=== PATIENT | female | born 1975 | race Caucasian/White ===

== ENCOUNTER 2017-01-28 05:38 | Observation (INO) | payer BC, MEDICAID ==
[2017-01-27 12:14] LABS: HEMATOCRIT 44.1 % (34.6-47.8); HEMOGLOBIN 14.9 g/dL (11.7-16.4); WHITE BLOOD COUNT 7.6 x10^3/uL (3.4-10)
[2017-01-27 12:26] LABS: BLOOD UREA NITROGEN 8 mg/dL (7-18)
[2017-01-27 12:33] LABS: ASPARTATE AMINO TRANSFERASE 15 U/L (15-37)
[~2017-01-28] VITALS: Ht 152.4 cm; Wt 94.5 kg
[~2017-01-28 05:38] MED LIST: AMIT50TA; CHLO25TA PO; HYDR-3240; IBUP-1223 PO; LISI-170 PO; ONDA4TAB13 SL; ONDA4TAB7; OXYC1TAB7 PO; OXYC5CAP2 PO; RIZA10TA22 PO; SENN-87 PO; SUMA100T4; TAMS-11; VALS160T3 PO; ZOLP10TA; ZOLP10TA5 PO
[2017-01-28 06:21] VITALS: BP 136/89
[2017-01-28] MEDS ORDERED: LIDOCAINE 1%, 2ML ONE (06:32)
[2017-01-28] MEDS ORDERED: FLUORESCEIN SODIUM 500 MG/5 ML ONE (07:05)
[2017-01-28] MEDS ORDERED: BUPIVACAINE/PF 0.25% ONE (07:05)
[2017-01-28] MEDS ORDERED: EPINEPHRINE 1 MG/ML, 1ML ONE (07:06)
[2017-01-28] MEDS ORDERED: MIDAZOLAM 1 MG/ML, 2ML ONE (07:21)
[2017-01-28] MEDS ORDERED: FENTANYL PF 100 MCG/2ML ONE ×7 (07:22→10:55)
[2017-01-28] MEDS ORDERED: PROPOFOL 10 MG/ML, 20ML ONE (07:31)
[2017-01-28] MEDS ORDERED: ROCURONIUM 10 MG/ML ONE ×4 (07:31)
[2017-01-28] MEDS ORDERED: CEFAZOLIN 1,000 MG ONE (07:31)
[2017-01-28] MEDS ORDERED: DEXAMETHASONE 4 MG/ML, 5ML ONE (07:31)
[2017-01-28] MEDS ORDERED: KETOROLAC 30 MG/1 ML ONE (07:31)
[2017-01-28] MEDS ORDERED: SUCCINYLCHOLINE 20 MG/ML, 10ML ONE (07:31)
[2017-01-28] MEDS ORDERED: ONDANSETRON 2MG/ML, 2ML ONE (07:31)
[2017-01-28] MEDS ORDERED: BUPIVACAINE/PF-EPI 0.25% 1:200K INFIL ONE (08:20)
[2017-01-28] MEDS ORDERED: ALBUTEROL SULFATE 2.5 MG/3 ML NPPB PRN (08:30)
[2017-01-28] MEDS ORDERED: hydrALAzine 20 MG/ML, 1ML IV PRN (08:30)
[2017-01-28] MEDS ORDERED: ONDANSETRON 2MG/ML, 2ML IVPush PRN (08:30)
[2017-01-28] MEDS ORDERED: LABETALOL 5MG/ML, 20ML IV PRN (08:30)
[2017-01-28] MEDS ORDERED: MEPERIDINE/PF 25MG/0.5ML IVPush PRN (08:30)
[2017-01-28] MEDS ORDERED: PROMETHAZINE 25 MG/ML, 1ML IV PRN (08:30)
[2017-01-28] MEDS ORDERED: MIDAZOLAM 1 MG/ML, 2ML IV PRN (08:30)
[2017-01-28] MEDS ORDERED: ACETAMINOPHEN 325 MG TABLET PO PRN (08:30)
[2017-01-28] MEDS ORDERED: OXYcodone 5 MG/5 ML ORAL.SOL UDC ONE ×2 (10:55→11:21)
[2017-01-28] MEDS ORDERED: ACETAMINOPHEN 650 MG/20.3 ML UDC ONE (10:55)
[2017-01-28] MEDS: FENTANYL PF 100 MCG/2ML IV PRN ×2 (10:59→11:07)
[2017-01-28] MEDS: OXYcodone 5 MG/5 ML ORAL.SOL UDC PO PRN ×2 (11:06→11:22)
[2017-01-28] MEDS ORDERED: HYDROmorphone 2 MG/ML, 1ML ONE ×2 (11:16→12:01)
[2017-01-28] MEDS: HYDROmorphone 1 MG/ML, 1ML IV PRN ×5 (11:20→12:03)
[2017-01-28] MEDS ORDERED: IBUPROFEN 600 MG TABLET PO PRN (13:00)
[2017-01-28] MEDS ORDERED: OXYcodone/APAP 5/325MG TABLET PO PRN ×3 (13:00→20:30)
[2017-01-28] MEDS ORDERED: OXYcodone IR 5MG TABLET PO PRN (13:00)
[2017-01-28] MEDS: ONDANSETRON 2MG/ML, 2ML IVPush PRN ×2 (13:48→21:28)
[2017-01-28] MEDS ORDERED: HYDROcodone/APAP 5/325 TABLET PO PRN (16:00)
[2017-01-28] MEDS: MORPHINE SULFATE 4 MG/ML, 1ML IVPush PRN ×4 (16:54→23:41)
[2017-01-28] MEDS ORDERED: ZOLPIDEM 10MG TABLET PO PRN (18:00)
[2017-01-28] MEDS: METHOCARBAMOL 750 MG TABLET PO PRN (18:11)
[2017-01-28] MEDS: METOCLOPRAMIDE 10MG TABLET PO PRN (18:59)
[2017-01-28] MEDS: HYDROcodone/APAP 10/325 MG TABLET PO PRN (18:59)
[2017-01-28 19:16] VITALS: BP 141/97
[2017-01-28] MEDS ORDERED: ONDANSETRON ODT 4 MG PO PRN ×2 (20:00→20:30)
[2017-01-28] MEDS ORDERED: ONDANSETRON ODT 4 MG PO SCH (20:30)
[2017-01-28] MEDS: SENNOSIDES 8.6 MG TABLET PO SCH (21:00)
[2017-01-28] MEDS ORDERED: VALSARTAN 160 MG TABLET PO SCH (21:00)
[2017-01-28] MEDS: IBUPROFEN 800 MG TABLET PO SCH (21:02)
[2017-01-28] MEDS: SIMETHICONE 80 MG CHEW TAB PO SCH (21:02)
[2017-01-29] MEDS: HYDROcodone/APAP 10/325 MG TABLET PO PRN (00:51)
[2017-01-29] MEDS: METOCLOPRAMIDE 10MG TABLET PO PRN ×2 (00:53→07:42)
[2017-01-29 01:42] VITALS: BP 97/63
[2017-01-29] MEDS: METHOCARBAMOL 750 MG TABLET PO PRN (02:32)
[2017-01-29] MEDS: MORPHINE SULFATE 4 MG/ML, 1ML IVPush PRN ×3 (02:32→05:01)
[2017-01-29] MEDS: SIMETHICONE 80 MG CHEW TAB PO SCH ×3 (05:01→15:35)
[2017-01-29 05:50] LABS: HEMATOCRIT 36.6 % (34.6-47.8); HEMOGLOBIN 12.5 g/dL (11.7-16.4); WHITE BLOOD COUNT 11.2 x10^3/uL (3.4-10)
[2017-01-29 07:33] VITALS: BP 94/66
[2017-01-29] MEDS: IBUPROFEN 800 MG TABLET PO SCH (07:42)
[2017-01-29] MEDS: SENNOSIDES 8.6 MG TABLET PO SCH (07:42)
[2017-01-29] MEDS: OXYcodone/APAP 10/325MG TABLET PO SCH ×2 (11:08→15:29)
[2017-01-29 15:29] VITALS: BP 118/72
[2017-01-29] MEDS ORDERED: IBUPROFEN 600 MG TABLET PO SCH (15:30)
[2017-01-29 17:33] VITALS: BP 116/68
[2017-01-29] MEDS ORDERED: OXYC-307 PO (17:39)
[2017-01-29] MEDS ORDERED: METH750T87 PO (17:40)
[2017-01-29] MEDS ORDERED: SIME80TA15 PO (17:40)
[2017-01-29] MEDS ORDERED: METO10TA82 PO (17:41)
[2017-01-29] MEDS ORDERED: IBUP-1222 PO (17:41)
== END 2017-01-29 18:00 | disposition home or self-care (01) ==
LOC: OUT 05:38 → 4NOR 14:57 → OUT 15:39 → 4NOR 15:39
PROVIDERS: ADMIT Obstetrics & Gynecology; ATTEND Obstetrics & Gynecology
DX: N92.0 Excessive and frequent menstruation with regular cycle (principal); D25.9 Leiomyoma of uterus, unspecified; N94.6 Dysmenorrhea, unspecified; R10.2 Pelvic and perineal pain; E66.01 Morbid (severe) obesity due to excess calories; Z98.51 Tubal ligation status
CPT/HCPCS: 36415; 58552; 80053; 84703; 85025; 88307; 96374; 96375; 96376; G0378; J0171; J0330; J0690; J1100; J1170; J1885; J2250; J2405; J2704; J3010; J3490

== ENCOUNTER 2020-11-21 05:19 | Day surgery (SDC) | payer OTHER ==
[2020-11-19 15:27] LABS: ALANINE AMINOTRANSFERASE 32 U/L (12-78); ALBUMIN 4.2 g/dL (3.4-5.0); ANION GAP 5 mmol/L (5-15); CALCIUM 9.1 mg/dL (8.5-10.1); CHLORIDE 100 mmol/L (98-107); CREATININE 0.62 mg/dL (0.55-1.02)
[2020-11-19 15:29] LABS: ALKALINE PHOSPHATASE 60 U/L (45-117); BILIRUBIN,TOTAL 0.7 mg/dL (0.2-1.0)
[~2020-11-21] VITALS: Ht 152.4 cm; Wt 96.4 kg
[~2020-11-21 05:19] MED LIST changes: +DULO30CA2 PO; +ERGO500017 PO; +HYDR-2214; -HYDR-3240; +IBUP-1222 PO; +METF500T17 PO; +METH750T87 PO; +METO10TA82 PO; +OXYC-380 PO; -RIZA10TA22 PO; +RIZA10TA92 PO; +SENN-190 PO; -SENN-87 PO; +SIME80TA15 PO; +TIZA4CAP PO; +[UNRECOGNIZED DRUG - CODE] PO
[2020-11-21 06:17] VITALS: BP 121/85
[2020-11-21] MEDS ORDERED: CHLORHEXIDINE 15 ML UDC ONE (06:20)
[2020-11-21] MEDS ORDERED: BUPIVACAINE/PF 0.5% ONE ×3 (06:22→07:27)
[2020-11-21] MEDS ORDERED: EPINEPHRINE 1 MG/ML, 1ML ONE (06:22)
[2020-11-21] MEDS ORDERED: CHLORHEXIDINE 15 ML UDC PO ONE (06:30)
[2020-11-21] MEDS ORDERED: LACTATED RINGERS 1,000 ML IV SCH (06:30)
[2020-11-21] MEDS ORDERED: FENTANYL PF 100 MCG/2ML ONE (06:40)
[2020-11-21] MEDS ORDERED: MIDAZOLAM 1 MG/ML, 2ML ONE (06:40)
[2020-11-21] MEDS ORDERED: DEXAMETHASONE 4 MG/ML, 1ML ONE (07:26)
[2020-11-21] MEDS ORDERED: PROPOFOL 10 MG/ML, 20ML ONE (07:26)
[2020-11-21] MEDS ORDERED: ONDANSETRON 2MG/ML, 2ML ONE (07:26)
[2020-11-21] MEDS ORDERED: LIDOCAINE-MPF 2% ,5ML ONE (07:26)
[2020-11-21] MEDS ORDERED: CEFAZOLIN 1,000 MG ONE (07:26)
[2020-11-21] MEDS ORDERED: VANCOMYCIN 500 MG ONE (07:35)
[2020-11-21] MEDS ORDERED: ACETAMINOPHEN 325 MG TABLET PO PRN (08:00)
[2020-11-21] MEDS ORDERED: OXYcodone 5 MG/5 ML ORAL.SOL UDC PO PRN (08:00)
[2020-11-21] MEDS ORDERED: MEPERIDINE/PF 25MG/0.5ML IVPush PRN (08:00)
[2020-11-21] MEDS ORDERED: LABETALOL 5MG/ML, 20ML IV PRN (08:00)
[2020-11-21] MEDS ORDERED: FENTANYL PF 100 MCG/2ML IV PRN (08:00)
[2020-11-21] MEDS ORDERED: PROMETHAZINE 25 MG/ML, 1ML IVPush PRN (08:00)
[2020-11-21] MEDS ORDERED: MIDAZOLAM 1 MG/ML, 2ML IV PRN (08:00)
[2020-11-21] MEDS ORDERED: HYDROmorphone 1 MG/ML, 1ML INJ IVPush PRN (08:00)
== END 2020-11-21 09:15 | disposition home or self-care (01) ==
LOC: OUT 05:19
PROVIDERS: ATTEND Orthopaedic Surgery Foot and Ankle Surgery
DX: T81.32XA Disruption of internal operation (surgical) wound, not elsewhere classified, initial encounter (principal); M65.872 Other synovitis and tenosynovitis, left ankle and foot; E11.9 Type 2 diabetes mellitus without complications; K21.9 Gastro-esophageal reflux disease without esophagitis; I25.10 Atherosclerotic heart disease of native coronary artery without angina pectoris; E66.01 Morbid (severe) obesity due to excess calories; Z20.822 Contact with and (suspected) exposure to COVID-19; Z79.899 Other long term (current) drug therapy; Z88.8 Allergy status to other drugs, medicaments and biological substances; Y83.8 Other surgical procedures as the cause of abnormal reaction of the patient, or of later complication, without mention of misadventure at the time of the procedure
CPT/HCPCS: 13160; 27680; 36415; 64415; 80053; 82962; 87070; 87075; 87205; 93005; J0690; J1100; J2250; J2405; J2704; J3010; J3370; J7120; U0003; U0005; J0171